=== PATIENT | male | born 1975 | race Caucasian/White ===

== ENCOUNTER 2018-03-02 19:51 | Emergency (ER) | payer OTHER, SELFPAY ==
[2018-03-02 19:53] VITALS: BP 126/97; PULSE 95; RESP 20; TEMP 36.8; O2SAT 99; BMI 39.9
--- NOTE | 2018-03-02 20:33 | ED.RN ---
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 Unable to reach anyone after hours for drug testing. Advised Radha contact his company in the morning for drug testing. 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 Radha expressed verbal understanding of this. Advised we are able to call in [facility] or [facility] if he needs testing done tonight. radha arita [phone]
--- NOTE | 2018-03-02 20:41 | ED.VISSUMM ---
- ER Visit Summary Date of Service: 03/02/18 Chief Complaint: Left upper extremity injury History of Present Illness: The patient is a 42 M presenting with left hand and wrist pain. Patient states he was at work earlier today. He slipped on the floor. He caught himself with his left upper extremity. He hit his hand against a piece of steel. He was able to brace himself and not fall. He is right-handed. He now complains of persistent pain in his left hand and wrist. He has not taken any medication prior to arrival. Physical Examination: Vitals are stable. Patient is afebrile. Alert no acute distress. HEENT exam is unremarkable. Lungs are clear and equal bilaterally. Heart is regular rate and rhythm. Extremities left hand dorsal diffuse tenderness, mild abrasion. Left wrist diffuse tenderness, painful range of motion. Skin is warm and dry. No focal neurologic deficit. Remainder of exam is unremarkable. Emergency Department Course and Treatment: Patient was given oxycodone. Ice pack was applied. X-ray left hand and wrist show no fracture. Patient is advised to ice and elevate. Advised to use NSAIDs for pain. Advised to follow-up with [employer] for workers comp. Advised to return to ED for worsening complaints. Disposition: Discharge home Impression: Left hand contusion This note was generated with [employer] dictation software. It may contain incorrect words, spelling, and punctuation that were not noted in review of the chart prior to signing ED Disposition - Plan for ED Patient: Chief Complaint: Upper Extremity Injury Instructions: ED Contusion Upper Ext Referrals: Marlon Esparza MD [Primary Care Provider] -
--- NOTE | 2018-03-02 20:44 | ED.DCSUM_ITS ---
- ER Visit Summary Date of Service: 03/02/18 Chief Complaint: Left upper extremity injury History of Present Illness: The patient is a 42 M presenting with left hand and wrist pain. Patient states he was at work earlier today. He slipped on the floor. He caught himself with his left upper extremity. He hit his hand against a piece of steel. He was able to brace himself and not fall. He is right-handed. He now complains of persistent pain in his left hand and wrist. He has not taken any medication prior to arrival. Physical Examination: Vitals are stable. Patient is afebrile. Alert no acute distress. HEENT exam is unremarkable. Lungs are clear and equal bilaterally. Heart is regular rate and rhythm. Extremities left hand dorsal diffuse tenderness, mild abrasion. Left wrist diffuse tenderness, painful range of motion. Skin is warm and dry. No focal neurologic deficit. Remainder of exam is unremarkable. Emergency Department Course and Treatment: Patient was given oxycodone. Ice pack was applied. X-ray left hand and wrist show no fracture. Patient is advised to ice and elevate. Advised to use NSAIDs for pain. Advised to follow- up with [employer] for workers comp. Advised to return to ED for worsening complaints. Disposition: Discharge home Impression: Left hand contusion This note was generated with [employer] dictation software. It may contain incorrect words, spelling, and punctuation that were not noted in review of the chart prior to signing ED Disposition - Plan for ED Patient: Chief Complaint: Upper Extremity Injury Instructions: ED Contusion Upper Ext Referrals: Marlon Esparza MD [Primary Care Provider] -
--- NOTE | 2018-03-02 20:45 | RAD_ITS ---
STUDY: X-RAY - LEFT WRIST REASON FOR EXAM: Male, 42 years old. Fall. Pain. TECHNIQUE: 3 view(s) of the wrist were obtained. COMPARISON: None. FINDINGS: There is no evidence of fracture or dislocation. There are no significant degenerative changes. There are no radiodense foreign bodies. RAD/Wrist min 3 Views IMPRESSION: No fracture or dislocation. Electronically Signed: Rui Lucas, at 21:12 EDT Tel , Service support ,
--- NOTE | 2018-03-02 20:45 | RAD_ITS ---
STUDY: X-RAY - LEFT HAND REASON FOR EXAM: Male, 42 years old. Fall TECHNIQUE: 3 view(s) of the hand. COMPARISON: None. FINDINGS: There is no evidence of fracture or dislocation. There are no significant degenerative changes. There are no radiodense foreign bodies. RAD/Hand Min 3 Views IMPRESSION: No fracture or dislocation. Electronically Signed: Rui Lucas, at 21:04 EDT Tel , Service support ,
--- NOTE | 2018-03-02 21:49 | ED.DEP ---
ED Disposition - Plan for ED Patient: Chief Complaint: Upper Extremity Injury Instructions: ED Contusion Upper Ext Referrals: Marlon Esparza MD [Primary Care Provider] -
[2018-03-02] MEDS: oxyCODONE 5 MG Tablet PO (22:05)
[2018-03-02 22:07] VITALS: RESP 16
--- NOTE | 2018-03-02 22:07 | ED.RN ---
REVIEWED D/C INSTRUCTIONS, FOLLOW UP CARE, AND S/S THAT WOULD WARRANT A RETURN TO THE ED WITH PT. PT VERBALIZED AN UNDERSTANDING AND DENIES FURTHER QUESTIONS FOR THIS RN. PT SKIN WARM AND DRY, RESP EVEN AND UNLABORED, PT A&O X 3, NO DISTRESS NOTED. PT AMBULATED OUT OF ED, GAIT STEADY.
== END 2018-03-02 22:09 | disposition home or self-care (01) ==
LOC: ED 21:04
PROVIDERS: Emergency Provider Emergency Medicine; Family Provider Family Medicine; PCP Family Medicine
DX: S60.222A Contusion of left hand, initial encounter (principal); W01.10XA Fall on same level from slipping, tripping and stumbling with subsequent striking against unspecified object, initial encounter; Y93.9 Activity, unspecified; Y92.89 Other specified places as the place of occurrence of the external cause; Y99.0 Civilian activity done for income or pay; Z79.899 Other long term (current) drug therapy
CPT/HCPCS: 73110; 73130; 99283

== ENCOUNTER 2018-10-07 21:48 | Emergency (ER) | payer SELFPAY ==
[2018-10-07 21:49] VITALS: BP 131/81; PULSE 67; RESP 18; TEMP 36.8; O2SAT 96; BMI 40.5
--- NOTE | 2018-10-07 23:06 | ED.DCSUM_ITS ---
History of Present Illness Chief Complaint: Weakness Informant: Patient - Abdominal Pain/Flank Pain Onset: Hours - 24 Context: Gradual Onset Timing: Continuous Quality: Cramping Location: Diffuse Current Severity: Moderate Maximum Severity: Moderate Worsened by: Nothing Relieved by: Nothing - hasn't tried any medications - Nausea/Vomiting/Emesis GI Symptom: Nausea. Negative for: Vomiting Onset: Today - Diarrhea/Melena/Hematochezia GI Symptom: Diarrhea - x 5 Onset: Today Stool Quality: Loose. Negative for: Black, Maroon, ARIANE per rectum Severity: Moderate Associated Symptoms: Negative for: Dysuria, Frequency, Hematuria, Urgency Narrative: Has a history of Crohn's. This does not necessarily feel like a flareup. He has had several bowel obstructions and bowel resections associated with his Crohn's but never an abscess or fistula. He is currently on prednisone for a knee problem, he is on day #4 of it. Has decreased appetite. Feels dehydrated although he has been trying to drink water all day. - Past Medical History (1) Crohn's disease Status: Chronic Past Medical History - Allergies and Home Meds Allergies/Adverse Reactions: Allergies No Known Allergies Allergy (Verified 10/07/18 21:50) Primary Care Physician: Marlon Esparza MD [Primary Care Provider] - Surgical History: - - Several bowel resections Lives: Spouse/ Significant Other Smoking Status: Current every day smoker Drugs: None Review of Systems General: Reports: Chills, Malaise. Denies: Fever, Sweats Eyes: Denies: Visual changes - bilaterally, Diplopia ENT: Denies: Rhinorrhea, Sore throat Cardiovascular: Denies: Chest pain, Palpitations Respiratory: Denies: Dyspnea, Cough, Dyspnea on exertion Gastrointestinal: Reports: Abdominal pain, Nausea, Diarrhea. Denies: Vomiting, Melena, Hematochezia Genitourinary: Denies: Dysuria, Hematuria, Frequency Musculoskeletal: Denies: Back pain, Swelling, Extremity Pain Skin: Denies: Rash, Wounds Neurological: Denies: Headache, Weakness, Numbness Physical Exam Vital Signs/Narrative: Vital Signs Temp Pulse Resp BP Pulse Ox 10/07/18 21:49 98.3 F 67 18 131/81 H 96 Inital Vital Signs reviewed: Yes General: Well nourished, Well developed, No Acute Distress Head: Normocephalic, Atraumatic Eyes: Perrl, EOMI ENT: Moist mucous membranes, No rhinorrhea Neck: Supple, Nontender Cardiovascular: Regular rate, Regular rhythm, No murmurs. Negative for: Tachycardia Respiratory: No distress, CTA bilaterally, Chest nontender Abdomen: Soft - And mildly distended, Nontender, Hyperactive bowel sounds Back: Nontender, Normal Inspection Extremities: Nontender, No edema Skin: Normal color, No rash Neurological: Alert, Oriented x3, Cranial nerves II-XII grossly intact, Normal Strength, Normal Sensation Psychological: Normal affect, Normal Mood Diagnostic/Tx/Re-eval Laboratory Tests 10/07/18 Range/Units 23:15 Sodium 139 (136-145) mmol/L Potassium 3.3 L (3.5-5.1) mmol/L Chloride 104 (98-107) mmol/L Carbon Dioxide 26.0 (21.0-32.0) mmol/L Anion Gap 9 (5-15) BUN 14 (7-18) mg/dL Creatinine 1.03 (0.70-1.30) mg/dL Estim Creat Clear Calc 95.48 ml/min Est GFR (MDRD) Af Amer 101 (>60) mL/min Est GFR (MDRD) Non-Af 84 (>60) mL/min BUN/Creatinine Ratio 13.6 (10-20) RATIO Glucose 104 (74-106) mg/dL Calcium 8.7 (8.5-10.1) mg/dL - Medical Decision Making Labs show mild hypokalemia, he was given some oral potassium after we treated hi s abdominal symptoms with IV fluids, Mylanta, simethicone, Zofran, and Bentyl. He is feeling improved. We both agree that it and imaging of the abdomen is not necessary at this time. I suspect he has a viral illness. Encouraged to return for worsening symptoms or if he develops severe and/or localized abdominal pain. He is amenable to this, as well as discharged home with prescriptions for Zo izzy, Bentyl, potassium. ED Disposition - Plan for ED Patient: Disposition: Home or Assisted Living Diagnosis: Acute diarrhea Instructions: ED Diarrhea Viral Prescriptions: Dicyclomine HCl [Bentyl] 20 mg PO Q4H PRN PRN #20 cap PRN Reason: abdominal cramping Ondansetron [Zofran] 8 mg PO Q8H PRN #12 tab PRN Reason: Nausea/Vomiting Potassium Chloride [K-Dur] 20 meq PO BID #8 tab Referrals: Marlon Esparza MD [Primary Care Provider] - 3-5 Days if not improving
[2018-10-07] MEDS: Dicyclomine 10 MG Capsule 20 MG PO (23:13)
[2018-10-07] MEDS: Mag Hydrox/Al Hydrox/Simeth 30 ML UDC PO (23:13)
[2018-10-07] MEDS: 0.9% Normal Saline 1,000 ML 999 ML IV (23:13)
[2018-10-07] MEDS: Ondansetron 4 MG/2 ML Vial IV (23:13)
[2018-10-07 23:43] LABS: Anion Gap 9 (5-15); BUN 14 mg/dL (7-18); BUN/Creat Ratio 13.6 RATIO (10-20); Calcium,Total 8.7 mg/dL (8.5-10.1); Chloride 104 mmol/L (98-107); Creatinine, Serum 1.03 mg/dL (0.70-1.30); EST Glomerular Filtration Rate 84 mL/min (>60); Est Glom Filt Rate - Afr Amer 101 mL/min (>60); Estimated Creatinine Clearance 95.48 ml/min; Glucose 104 mg/dL (74-106); Potassium 3.3 mmol/L (3.5-5.1); Sodium Level 139 mmol/L (136-145)
[2018-10-08 00:21] VITALS: BP 131/86; PULSE 69; RESP 20; O2SAT 94
== END 2018-10-08 00:27 | disposition home or self-care (01) ==
PROVIDERS: Emergency Provider Emergency Medicine; Family Provider Family Medicine; PCP Family Medicine
DX: R19.7 Diarrhea, unspecified (principal); E87.6 Hypokalemia; K50.90 Crohn's disease, unspecified, without complications; F17.200 Nicotine dependence, unspecified, uncomplicated; Z79.82 Long term (current) use of aspirin; Z79.899 Other long term (current) drug therapy
CPT/HCPCS: 80048; 96361; 96374; 99283; J7030; J2405

== ENCOUNTER 2018-10-08 13:03 | Inpatient (IN) | payer SELFPAY ==
[2018-10-07 21:49] VITALS: BMI 40.5
[2018-10-08 13:04] VITALS: BP 118/77; PULSE 94; RESP 17; TEMP 37.8; O2SAT 94; BMI 40.1
--- NOTE | 2018-10-08 13:34 | CT_ITS ---
STUDY: CT ABDOMEN AND PELVIS WITH CONTRAST REASON FOR EXAM: Male, 43 years old. Pain RADIATION DOSAGE (If Supplied By Facility): DLP = ( 1372.93 ) mGycm TECHNIQUE: Transaxial images were obtained from the dome of the diaphragm to the symphysis pubis without oral contrast. 100mL ml of Isovue 300 contrast was administered. Sagittal and coronal images were reconstructed. Individualized dose optimization techniques were used for this CT. COMPARISON: CT abdomen and pelvis January 18, 2015 FINDINGS: The visualized lung bases are clear. The visualized portions of the heart and pericardium are within normal limits. There are no calcified gallstones present. There is decreased hepatic attenuation. There are no suspicious hepatic lesions. The spleen is normal in size. The pancreas is within normal limits. The adrenal glands are within normal limits. There are no obstructing renal stones. There is no hydronephrosis. There are no focal renal lesions. Normal visualized stomach. There is no evidence of bowel obstruction. There is mild to moderate diffuse colonic wall thickening. There is mild adjacent increased fat attenuation. The aorta is normal in caliber. There is no abdominal or pelvic free air, free fluid, fluid collection or lymphadenopathy. There are no destructive osseous lesions. CT/Abdomen/Pelvis W IV Cont ONLY IMPRESSION: Mild to moderate diffuse colitis. Fatty liver. Electronically Signed: Erasto Short, at 15:05 EDT Tel , Service support ,
[2018-10-08] MEDS: 0.9% Normal Saline 1,000 ML 1000 ML IV (13:46)
[2018-10-08] MEDS: Ondansetron 4 MG/2 ML Vial IV (13:51)
[2018-10-08] MEDS: Morphine 4 MG/ML Syringe IV ×2 (13:51→16:12)
[2018-10-08 14:00] LABS: Absolute Lymphocyte Count 1.18 X10^3/ul (0.83-4.51); Absolute Neutrophil Count 11.2 X10^3/uL (2.0-7.7); Basophil# 0.02 X10^3/uL; Basophil% 0.1 % (0-1); Eosinophil# 0.01 X10^3/uL; Eosinophils% 0.1 % (0-5); Hematocrit 44.4 % (40-54); Hemoglobin 15.9 g/dl (13.0-16.5); Lymphocyte # 1.18 X10^3/ul (4.0); Lymphocyte % 8.8 % (19-41); Mean Corp Hgb Conc 35.8 g/gl (32-36); Mean Corpuscular Hgb 30.5 pg (27.0-32.0); Mean Corpuscular Volume 85.2 fL (80-94); Mean Platelet Vol. 9.8 fl (6.2-12.0); Monocyte# 1.04 X10^3/uL; Monocyte% 7.7 % (0-10); Neutrophil # 11.15 X10^3/uL (2.7-7.7); POSITIVE COUNT NO; POSITIVE DIFFERENTIAL NO; POSITIVE MORPHOLOGY NO; Platelet Count 183 K/mm3 (150-450); RBC Distribution Width CV 13.1 % (11.6-14.6); RBC Distribution Width SD 40.4 fl (35.1-43.9); Red Blood Count 5.21 M/mm3 (4.6-6.2); White Blood Count 13.4 K/mm3 (4.4-11.0)
[2018-10-08 14:10] LABS: ALB/GLOB Ratio 0.8 RATIO (0.9-2.4); AST(SGOT) 33 U/L (15-37); Alanine Aminotransfer ALT/SGPT 59 U/L (16-61); Albumin, Serum 3.4 g/dL (3.2-5.0); Alkaline Phosphatase 81 U/L (45-117); Anion Gap 7 (5-15); BUN 9 mg/dL (7-18); BUN/Creat Ratio 8.8 RATIO (10-20); Calcium,Total 8.5 mg/dL (8.5-10.1); Chloride 105 mmol/L (98-107); Creatinine, Serum 1.02 mg/dL (0.70-1.30); EST Glomerular Filtration Rate 85 mL/min (>60); Est Glom Filt Rate - Afr Amer 102 mL/min (>60); Estimated Creatinine Clearance 96.42 ml/min; Globulin 4.3 g/dL (2.2-4.2); Glucose 101 mg/dL (74-106); Lipase 103 U/L (73-393); Potassium 3.6 mmol/L (3.5-5.1); Protein, Total 7.7 g/dL (6.4-8.2); Sodium Level 135 mmol/L (136-145)
[2018-10-08 14:50] VITALS: BP 114/71; PULSE 71; RESP 16; TEMP 38; O2SAT 94
[2018-10-08 15:00] VITALS: BP 112/65; PULSE 70; RESP 12; TEMP 38; O2SAT 94; BMI 40.1; BMI 40.2
--- NOTE | 2018-10-08 15:34 | ED.DCSUM_ITS ---
- ER Visit Summary Date of Service: 10/08/18 Chief Complaint: Nausea, vomiting, diarrhea History of Present Illness: The patient is a 43 M with a history of Crohn's disease. He presents for nausea, vomiting, and diarrhea. Symptoms have been going on for 2 days. He was seen yesterday and had a pretty unremarkable work- up. He was sent home, but despite taking medications, he is worsening. Denies any bleeding. He is having some subjective fevers. No other new or different symptoms. He has a history of a remote obstruction and resection from his Crohn's disease. He is on prednisone. Physical Examination: Temperature 100.1. Heart rate 94. Otherwise vitals unremarkable. Patient appears uncomfortable. Heart regular. Lungs clear. Abdomen diffusely tender. No guarding or rebound. Skin appears normal. Test Results: White count 13.4 and sodium 135. Hepatic panel and lipase normal. Lactate and cultures pending. CT abdomen and pelvis showed mild to moderate diffuse colitis with a fatty liver. Emergency Department Course and Treatment: Patient treated with fluids, morphine, and Zofran while awaiting results. Results as above. He did have a leukocytosis and a heart rate of 94. Lactate and cultures pending. Given these findings and his failed outpatient care, he will need admission and was discussed with the hospitalist. I was initially going to treat with Solu-Medrol and Zosyn. I am not convinced this is a Crohn's flare. Will treat with Cipro, Flagyl and hold steroids for now. Treatment Plan: As above Disposition: Admission Impression: 1. Colitis This note was generated with [employer] dictation software. It may contain incorrect words, spelling, and punctuation that were not noted in review of the chart prior to signing ED Disposition - Plan for ED Patient: Referrals: Marlon Esparza MD [Primary Care Provider] -
--- NOTE | 2018-10-08 15:52 | PCM.HP.STD ---
Problem List (1) Sepsis Status: Acute (2) Acute colitis Status: Acute (3) Crohn's disease Status: Chronic History of Present Illness Date of Admission: 10/08/18 Chief Complaint: Nausea, vomiting and diarrhea. The patient is a 43 year old M with past medical history as mentioned above presented to the emergency room because of nausea, vomiting and diarrhea. His symptoms started 2 days ago first with not feeling well and, weak and having some malaise. Next day, patient started having diarrhea with watery stool, 6-8 times daily since yesterday, started having associated nausea and vomiting since last night which was persistent, could not keep down any liquids or food and associated with fever of up to 101 Fahrenheit. Since today morning, he started complaining of vague abdominal discomfort, not real pain, associated with abdominal distention and he continued to throw up and having diarrhea as well as fever. Patient came to the emergency department 2 days ago for weakness and diarrhea and he was given symptomatic treatment and was discharged home. Today in the emergency room, patient had low-grade fever, heart rate was up to 94 bpm, other vital signs were stable. Routine blood work was remarkable for leukocytosis, otherwise normal. LFT and lipase were unremarkable. CT scan abdomen and pelvis with IV contrast revealed mild to moderate diffuse colonic wall thickening consistent with acute colitis. Patient is being admitted for acute diffuse colitis with sepsis for evaluation and treatment. Past Medical History Past Medical History (Chronic Problems): Chronic Problems Crohn's disease (Chronic) Allergies No Known Allergies Allergy (Verified 10/08/18 13:04) Home Medications: Ambulatory Orders Medication Instructions Recorded Aspirin [Aspirin, Baby] 81 mg PO DAILY@0800 10/07/18 Prednisone 10 mg PO UD 10/07/18 Dicyclomine HCl [Bentyl] 20 mg PO Q4H PRN PRN #20 cap 10/08/18 Ondansetron [Zofran] 8 mg PO Q8H PRN #12 tab 10/08/18 Potassium Chloride [K-Dur] 20 meq PO BID #8 tab 10/08/18 Surgical History: appendectomy, - - Several bowel resections Psychiatric History: No pertinent psych hx Lives: Spouse/ Significant Other Smoking Status: Current every day smoker Tobacco Use: Cigarettes Alcohol: None Drugs: None - *Family History Maternal History Items: No pertinent history Paternal History Items: No pertinent history Review of Systems Constitutional: Reports: Anorexia, Chills, Fever, Weakness, Fatigue Eyes: Denies: Blurred vision, Double vision, Drainage, Redness HEENT: Denies: Difficulty Hearing, Ear Pain, Eye Pain, Nasal Congestion, Sore Throat Cardiovascular: Denies: Chest Pain, Chest Pressure, Heaviness, Light Headedness, Palpitations, Syncope Respiratory: Reports: Cough. Denies: Pleuritic Pain, Shortness of Breath, Sputum production, Wheezing Gastrointestinal: Reports: Diarrhea, Nausea, Vomiting. Denies: Constipation, Hematochezia, Melena Genitourinary: Denies: Dysuria, Frequency, Hematuria Skin: Denies: Dryness, Rash Neurological: Denies: Balance problems, Double vision, Change in Speech, Slurred speech, Confusion, Headaches, Incoordination, Numbness Psychiatric: Denies: Anxiety, Depression Endocrine: Denies: Change in Body Habitus, Polydipsia VTE Information - Inpt Only VTE Present on Admission: No VTE Mechan Device Prophylaxis: None VTE Pharm Prophylaxis ordered?: No - Physical Exam General: Alert, Oriented x3, Cooperative, No apparent distress HEENT: Atraumatic, PERRLA, EOMI, Normocephalic Oral: Moist Mucosa, No Gingival or Mucosal Lesions/ Ulcerations Neck: Supple, No JVD, Negative Carotid Bruits, Trachea Midline, Thyroid Normal Size and Texture Lungs: Clear to auscultation, Normal air movement, No rhonchi, No wheeze, No rales, Diminished Cardiovascular: Regular rate, Regular Rhythm, Normal S1, Normal S2, No murmurs, PMI Normal Abdomen: Bowel Sounds Present, Soft, No Hepato-splenomegaly, Distended, Tender - No guarding or rigidity. Extremities: No clubbing, No cyanosis, No edema Skin: No rashes, No breakdown Lymphatic: No Cervical, Supraclavicular, or Inguinal Adenopathy Neurological: Cranial nerves II-XII grossly intact, Motor Exam 5/5 strength throughout Psych/Mental Status: Normal Affect, Appropriate, Alert and oriented to time, place, person, mood and affect Vital Signs Temp Pulse Resp BP Pulse Ox 100.4 F H 71 16 114/71 94 10/08/18 14:50 10/08/18 14:50 10/08/18 14:50 10/08/18 14:50 10/08/18 14:50 Oxygen Delivery Method Room Air Weight: 280 lb Body Mass Index (BMI) 40.1 Laboratory Tests Past 24 Hrs 10/08/18 10/08/18 13:45 13:45 WBC 13.4 H RBC 5.21 Hgb 15.9 Hct 44.4 MCV 85.2 MCH 30.5 MCHC 35.8 RDW 13.1 RDW Differential 40.4 Plt Count 183 MPV 9.8 Immature Gran % (Auto) 0.300 Neut % (Auto) 83.0 H Lymph % (Auto) 8.8 L [place] % (Auto) 7.7 Eos % (Auto) 0.1 Baso % (Auto) 0.1 Absolute Neuts (auto) 11.2 H Absolute Lymphs (auto) 1.18 Total Counted Not Reportable Sodium 135 L Potassium 3.6 Chloride 105 Carbon Dioxide 23.0 Anion Gap 7 BUN 9 Creatinine 1.02 Estim Creat Clear Calc 96.42 Est GFR (MDRD) Af Amer 102 Est GFR (MDRD) Non-Af 85 BUN/Creatinine Ratio 8.8 L Glucose 101 Calcium 8.5 Total Bilirubin 0.80 AST 33 ALT 59 Alkaline Phosphatase 81 Total Protein 7.7 Albumin 3.4 Globulin 4.3 H Albumin/Globulin Ratio 0.8 L Lipase 103 Clinical Impression(s) from Imaging Studies Abdomen/Pelvis CT 10/08/18 13:34 IMPRESSION: Mild to moderate diffuse colitis. Fatty liver. Electronically Signed: Erasto Short, at 15:05 EDT Tel , Service support , Assessment/Plan All Active Problems Sepsis (Acute) Acute colitis (Acute) This is a 43 years old male patient presented to the emergency room because of nausea, vomiting, diarrhea, fever, weakness and abdominal distention, found to have mild to moderate diffuse colonic thickening on CT scan abdomen and pelvis consistent with acute diffuse colitis with sepsis. #1 acute diffuse colitis/sepsis: Patient is septic based on low-grade fever, heart rate more than 90 and leukocytosis. Lactic acid was just ordered in the ED. His blood pressure has been stable, the spikes of low-grade fever in the ED. CT scan abdomen and pelvis reviewed as above. I doubt that this acute diffuse colitis due to acute exacerbation of Crohn's disease as it is diffuse inflammation and it involves only the colon. This is probably infectious in etiology. Plan: Admit to MedSurg floor, keep on clear liquids, IV fluids, IV morphine PRN, IV Zofran and Phenergan as needed, IV Protonix twice daily, chest x-ray, urinalysis, urine culture, blood culture, stool for C. difficile, stool for enteric pathogens, stool for parasites, start IV Flagyl and ciprofloxacin, repeat CBC and CMP tomorrow morning, awaiting lactic acid. #2 Crohn's disease: At this time, I doubt that his symptoms due to acute flareup of Crohn's disease. Patient denies any bloody diarrhea. He denied any significant abdominal pain. Plan as above. #3 DVT prophylaxis: Low risk patient, no prophylaxis indicated. This note was generated with [email or web address] dictation software. It may contain incorrect words, spelling, and punctuation that were not noted in checking the note before signing. Code Visit Inpatient E&M: 99120 Init Hosp L3
--- NOTE | 2018-10-08 17:00 | RAD_ITS ---
STUDY: X-RAY CHEST REASON FOR EXAM: Male, 43 years old. Fever TECHNIQUE: Frontal view of the chest COMPARISON: None. FINDINGS: The lungs are clear. There are no pleural effusions. There is no pneumothorax. The heart is normal in size. The visualized osseous structures are within normal limits. RAD/Chest 1 View (Portable) IMPRESSION: No acute thoracic pathology. Electronically Signed: Erasto Short, at 17:13 EDT Tel , Service support ,
[2018-10-08 17:10] LABS: Lactic Acid 0.7 mmol/L (0.4-2.0)
[2018-10-08 17:59] VITALS: PULSE 68
[2018-10-08] MEDS: Ciprofloxacin 400 MG/200 ML BAG 200 MG IV (18:33)
[2018-10-08 19:59] VITALS: PULSE 85
[2018-10-08 21:37] LABS: Bacteria 0 SEEN /hpf (None Seen); Mucous, Urine 0 SEEN /hpf (<or=2+); Red Blood Cells-Urine 0 SEEN /hpf (0-5); Squamous Epithelial Cells - UA 0 SEEN /hpf (0-5); White Blood Cells 0 SEEN /hpf (0-5)
[2018-10-08 21:39] VITALS: BP 117/69; PULSE 68; RESP 18; TEMP 37.2; O2SAT 98
[2018-10-08 21:40] LABS: Color, Urine Yellow (Yellow); Glucose, Dipstick Normal (Normal); Ketone-Dipstick 15 mg/dl (Negative); Leukocyte Esterase-Dipstick Negative /ul (Negative); Nitrite-Dipstick Negative (Negative); Occult Blood-Urine 10 /ul (Negative); Protein-Dipstick Negative (Negative); Specific Gravity, Urine 1.015 (1.002-1.030); Urine Bilirubin Dipstick Negative (Negative); Urine Clarity Clear (Clear); Urine Urobilinogen Normal (Normal)
[2018-10-08] MEDS: Acetaminophen 325 MG Tablet 650 MG PO (21:56)
[2018-10-09] VITALS (11 sets, daily range): BP systolic 106–113; BP diastolic 60–69; PULSE 53–75; RESP 16–18; TEMP 36.7–37.1; O2SAT 96–98
[2018-10-09] MEDS: Ondansetron 4 MG/2 ML Vial IV (03:42)
[2018-10-09] MEDS: Morphine 2 MG/ML Syringe IV (03:42)
[2018-10-09] MEDS: Acetaminophen 325 MG Tablet 650 MG PO ×2 (05:17→16:29)
[2018-10-09 06:06] LABS: Absolute Lymphocyte Count 0.91 X10^3/ul (0.83-4.51); Absolute Neutrophil Count 5.6 X10^3/uL (2.0-7.7); Basophil# 0.02 X10^3/uL; Basophil% 0.3 % (0-1); Eosinophil# 0.11 X10^3/uL; Eosinophils% 1.5 % (0-5); Hematocrit 41.7 % (40-54); Hemoglobin 14.2 g/dl (13.0-16.5); Lymphocyte # 0.91 X10^3/ul (4.0); Lymphocyte % 12.1 % (19-41); Mean Corp Hgb Conc 34.1 g/gl (32-36); Mean Corpuscular Hgb 29.8 pg (27.0-32.0); Mean Corpuscular Volume 87.4 fL (80-94); Mean Platelet Vol. 9.9 fl (6.2-12.0); Monocyte# 0.88 X10^3/uL; Monocyte% 11.7 % (0-10); Neutrophil % 74.3 % (47-70); Platelet Count 145 K/mm3 (150-450); RBC Distribution Width CV 13.5 % (11.6-14.6); RBC Distribution Width SD 42.3 fl (35.1-43.9); Red Blood Count 4.77 M/mm3 (4.6-6.2); White Blood Count 7.5 K/mm3 (4.4-11.0)
[2018-10-09 06:16] LABS: POSITIVE COUNT NO; POSITIVE DIFFERENTIAL NO; POSITIVE MORPHOLOGY NO
[2018-10-09 06:28] LABS: ALB/GLOB Ratio 0.8 RATIO (0.9-2.4); AST(SGOT) 29 U/L (15-37); Alanine Aminotransfer ALT/SGPT 50 U/L (16-61); Albumin, Serum 2.8 g/dL (3.2-5.0); Alkaline Phosphatase 68 U/L (45-117); Anion Gap 4 (5-15); BUN 8 mg/dL (7-18); BUN/Creat Ratio 8.4 RATIO (10-20); Chloride 109 mmol/L (98-107); Creatinine, Serum 0.95 mg/dL (0.70-1.30); EST Glomerular Filtration Rate 92 mL/min (>60); Est Glom Filt Rate - Afr Amer 111 mL/min (>60); Estimated Creatinine Clearance 103.52 ml/min; Globulin 3.7 g/dL (2.2-4.2); Glucose 91 mg/dL (74-106); Potassium 4.2 mmol/L (3.5-5.1); Protein, Total 6.5 g/dL (6.4-8.2); Sodium Level 139 mmol/L (136-145)
--- NOTE | 2018-10-09 08:47 | PCM.PROGNOTE ---
Subjective: Chief complaint: Follow-up after admission for acute diffuse colitis and sepsis. Patient seen and examined. No acute events overnight. Abdominal pain improved but still complaining of mild abdominal discomfort. He has no more nausea or vomiting. He has been afebrile overnight. Still complaining of diarrhea, he had 4 times of watery stool overnight, no blood. His vital signs are stable. - Physical Exam General: Alert, Oriented x3, Cooperative, No apparent distress HEENT: Atraumatic, PERRLA, EOMI, Normocephalic Oral: Moist Mucosa, No Gingival or Mucosal Lesions/ Ulcerations Neck: Supple, No JVD, Negative Carotid Bruits, Trachea Midline, Thyroid Normal Size and Texture Lungs: Clear to auscultation, Normal air movement, No rhonchi, No wheeze, No rales Cardiovascular: Regular rate, Regular Rhythm, Normal S1, Normal S2, PMI Normal Abdomen: Bowel Sounds Present, Soft, Non-Distended, No Hepato-splenomegaly, Tender - Minimal tenderness. Extremities: No clubbing, No cyanosis, No edema Skin: No rashes, No breakdown Lymphatic: No Cervical, Supraclavicular, or Inguinal Adenopathy Neurological: Cranial nerves II-XII grossly intact, Neuro grossly intact Psych/Mental Status: Normal Affect, Appropriate, Alert and oriented to time, place, person, mood and affect Vital Signs Temp Pulse Resp BP Pulse Ox 98.5 F 53 L 16 113/66 97 10/09/18 02:21 10/09/18 04:34 10/09/18 02:21 10/09/18 02:21 10/09/18 07:16 Oxygen Delivery Method Room Air Weight: 280 lb Body Mass Index (BMI) 40.1 Intake and Output for Last 24 Hours 10/07/18 10/08/18 10/09/18 23:59 23:59 23:59 Intake Total 2273 / 2273 Output Total 550 / 550 Balance 1723 / 1723 Microbiology Past 72 Hours 10/08/18 22:20 C. difficile DNA Amplification - Final Stool Laboratory Tests Past 24 Hrs 10/08/18 10/08/18 10/08/18 13:45 13:45 16:24 WBC 13.4 H RBC 5.21 Hgb 15.9 Hct 44.4 MCV 85.2 MCH 30.5 MCHC 35.8 RDW 13.1 RDW Differential 40.4 Plt Count 183 MPV 9.8 Immature Gran % (Auto) 0.300 Neut % (Auto) 83.0 H Lymph % (Auto) 8.8 L [place] % (Auto) 7.7 Eos % (Auto) 0.1 Baso % (Auto) 0.1 Absolute Neuts (auto) 11.2 H Absolute Lymphs (auto) 1.18 Total Counted Not Reportable Sodium 135 L Potassium 3.6 Chloride 105 Carbon Dioxide 23.0 Anion Gap 7 BUN 9 Creatinine 1.02 Estim Creat Clear Calc 96.42 Est GFR (MDRD) Af Amer 102 Est GFR (MDRD) Non-Af 85 BUN/Creatinine Ratio 8.8 L Glucose 101 Lactic Acid 0.7 Calcium 8.5 Total Bilirubin 0.80 AST 33 ALT 59 Alkaline Phosphatase 81 Total Protein 7.7 Albumin 3.4 Globulin 4.3 H Albumin/Globulin Ratio 0.8 L Lipase 103 Urine Color Urine Clarity Urine pH Ur Specific [place] Urine Protein Urine Glucose (UA) Urine Ketones Urine Occult Blood Urine Nitrite Urine Bilirubin Urine Urobilinogen Ur Leukocyte Esterase Urine RBC Urine WBC Ur Squamous Epith Cells Urine Bacteria Urine Mucus 10/08/18 10/09/18 10/09/18 20:30 05:10 05:10 WBC 7.5 RBC 4.77 Hgb 14.2 Hct 41.7 MCV 87.4 MCH 29.8 MCHC 34.1 RDW 13.5 RDW Differential 42.3 Plt Count 145 L MPV 9.9 Immature Gran % (Auto) 0.100 Neut % (Auto) 74.3 H Lymph % (Auto) 12.1 L [place] % (Auto) 11.7 H Eos % (Auto) 1.5 Baso % (Auto) 0.3 Absolute Neuts (auto) 5.6 Absolute Lymphs (auto) 0.91 Total Counted Not Reportable Sodium 139 Potassium 4.2 Chloride 109 H Carbon Dioxide 26.0 Anion Gap 4 L BUN 8 Creatinine 0.95 Estim Creat Clear Calc 103.52 Est GFR (MDRD) Af Amer 111 Est GFR (MDRD) Non-Af 92 BUN/Creatinine Ratio 8.4 L Glucose 91 Lactic Acid Calcium 8.0 L Total Bilirubin 0.50 AST 29 ALT 50 Alkaline Phosphatase 68 Total Protein 6.5 Albumin 2.8 L Globulin 3.7 Albumin/Globulin Ratio 0.8 L Lipase Urine Color Yellow Urine Clarity Clear Urine pH 6.0 Ur Specific [place] 1.015 Urine Protein Negative Urine Glucose (UA) Normal Urine Ketones 15 H Urine Occult Blood 10 H Urine Nitrite Negative Urine Bilirubin Negative Urine Urobilinogen Normal Ur Leukocyte Esterase Negative Urine RBC 0 SEEN Urine WBC 0 SEEN Ur Squamous Epith Cells 0 SEEN Urine Bacteria 0 SEEN Urine Mucus 0 SEEN Microbiology 10/08/18 22:20 Stool C. difficile DNA Amplification - Final Medical Necessity - Tobacco Use Smoking Status: Current every day smoker Tobacco Use: Cigarettes Assessment/Plan All Active Problems Sepsis (Acute) Acute colitis (Acute) This is a 43 years old male patient presented to the emergency room because of nausea, vomiting, diarrhea, fever, weakness and abdominal distention, found to have mild to moderate diffuse colonic thickening on CT scan abdomen and pelvis consistent with acute diffuse colitis with sepsis. #1 acute diffuse colitis/sepsis: Probably viral in etiology. Patient is on IV Flagyl and ciprofloxacin. He has been afebrile, white blood cell count is back to normal. Stool for C. difficile was negative. Other stool studies, urine and blood cultures are pending. Again, I doubt this is acute flareup of Crohn's disease as the acute inflammation is involving the colon and it is diffuse. Plan: Continue same treatment, advance diet to full liquid diet, anticipate discharge home tomorrow. #2 Crohn's disease: At this time, I doubt that his symptoms due to acute flareup of Crohn's disease. Patient denies any bloody diarrhea. He denied any significant abdominal pain. Plan as above. #3 DVT prophylaxis: Low risk patient, no prophylaxis indicated. This note was generated with [employer] dictation software. It may contain incorrect words, spelling, and punctuation that were not noted in checking the note before signing. Code Visit Inpatient E&M: 67602 Subs Hosp L2
[2018-10-09] MEDS: Ciprofloxacin 400 MG/200 ML BAG 200 MG IV ×2 (09:14→21:24)
[2018-10-09] MEDS: Dicyclomine 10 MG Capsule PO ×2 (16:29→21:29)
[2018-10-09] MEDS: Ibuprofen 600 MG Tablet PO (21:23)
[2018-10-10 02:00] VITALS: PULSE 54
[2018-10-10 02:23] VITALS: BP 100/63; PULSE 48; RESP 16; TEMP 36.4; O2SAT 97
[2018-10-10 08:00] VITALS: PULSE 80
[2018-10-10] MEDS: Dicyclomine 10 MG Capsule PO (08:23)
[2018-10-10 08:30] VITALS: BP 138/77; PULSE 54; RESP 16; TEMP 36.4; O2SAT 100
--- NOTE | 2018-10-10 10:01 | PCM.DC ---
You will use the following diet at home:: No restrictions Your food should be the consistency of: Regular Discharge Activity: Return to Normal Activity Call your doctor if you observe: Fever of 101 or Higher, - - worsening abdominal pain. intractable nasuea, vomiting, diarrhea Allergies/Adverse Reactions: Allergies No Known Allergies Allergy (Verified 10/08/18 13:04) Medications to take at Discharge Aspirin [Aspirin, Baby] 81 mg PO DAILY@0800 10/07/18 Dicyclomine HCl [Bentyl] 20 mg PO Q4H PRN PRN #20 cap 10/08/18 Ondansetron [Zofran] 8 mg PO Q8H PRN #12 tab 10/08/18 Potassium Chloride [K-Dur] 20 meq PO BID #8 tab 10/08/18 Acetaminophen [Tylenol Tablet] 1,000 mg PO Q6H PRN PRN tablet 10/10/18 Ciprofloxacin [Cipro] 500 mg PO BID #17 tab 10/10/18 Metronidazole 500 mg PO TID #25 tab 10/10/18 The following prescriptions were given: Ciprofloxacin [Cipro] 500 mg PO BID #17 tab Metronidazole 500 mg PO TID #25 tab Primary Care Physician: Marlon Esparza MD [Primary Care Provider] - Within 2 Weeks Test Results: Test results from this visit will be discussed in further detail at your follow-up appointment, if applicable. Please Follow Up With: Julio Wills MD When: 4-6 weeks (or another turn laster) Proposed Discharge Date: 10/10/18
--- NOTE | 2018-10-10 10:05 | DCINST_ITS ---
You will use the following diet at home:: No restrictions Your food should be the consistency of: Regular Discharge Activity: Return to Normal Activity Call your doctor if you observe: Fever of 101 or Higher, - - worsening abdominal pain. intractable nasuea, vomiting, diarrhea Allergies/Adverse Reactions: Allergies No Known Allergies Allergy (Verified 10/08/18 13:04) Medications to take at Discharge Aspirin [Aspirin, Baby] 81 mg PO DAILY@0800 10/07/18 Dicyclomine HCl [Bentyl] 20 mg PO Q4H PRN PRN #20 cap 10/08/18 Ondansetron [Zofran] 8 mg PO Q8H PRN #12 tab 10/08/18 Potassium Chloride [K-Dur] 20 meq PO BID #8 tab 10/08/18 Acetaminophen [Tylenol Tablet] 1,000 mg PO Q6H PRN PRN tablet 10/10/18 Ciprofloxacin [Cipro] 500 mg PO BID #17 tab 10/10/18 Metronidazole 500 mg PO TID #25 tab 10/10/18 The following prescriptions were given: Ciprofloxacin [Cipro] 500 mg PO BID #17 tab Metronidazole 500 mg PO TID #25 tab Primary Care Physician: Marlon Esparza MD [Primary Care Provider] - Within 2 Weeks Test Results: Test results from this visit will be discussed in further detail at your follow- up appointment, if applicable. Please Follow Up With: Julio Wills MD When: 4-6 weeks (or another census taker) Proposed Discharge Date: 10/10/18
--- NOTE | 2018-10-10 10:05 | PCM.DC.SUM ---
Discharge Date and Diagnosis - Problem List Patient Problems: Active and Suspected Problems Sepsis (Acute) Acute colitis (Acute) Date of Admission: 10/08/18 Date of Discharge: 10/10/18 - Secondary Discharge Diagnosis Chronic Problems Crohn's disease (Chronic) Hospital Course and Treatment Imaging Results: Clinical Impression(s) from Imaging Studies Abdomen/Pelvis CT 10/08/18 13:34 IMPRESSION: Mild to moderate diffuse colitis. Fatty liver. Electronically Signed: Erasto Mendosai, at 15:05 EDT Tel , Service support , Chest X-Ray 10/08/18 17:00 IMPRESSION: No acute thoracic pathology. Electronically Signed: Erasto Mendosai, at 17:13 EDT Tel , Service support , Operations: None Procedures: None Summary of Care Provided: The patient is a 43 year old M presents with 2-day history of nausea, vomiting and diarrhea. Patient had a CAT scan that showed mild to moderate diffuse colitis. Patient was clinically septic on arrival and was started on IV antibiotics with ciprofloxacin and metronidazole. Is felt that that this may be infectious as it was diffuse and not inflammatory flareup. Patient was diagnosed with Crohn's disease in 1991 when he had a small bowel obstruction and had a biopsy at that time that confirmed the diagnosis of Crohn's disease. Patient has some mild intermittent flareups periodically but resolved spontaneously. He feels that those are more associated with when he takes an dietary indiscretions, such as taking too much caffeine. This is different as it was much more severe. Today, patient is feeling much better. Patient's diet will be advanced to a low residue if patient tolerates that then he can be discharged. Patient is not on any medication for his Crohn's disease. Was following with a doctor Elma, but has not followed up with any manager agricultural in the past couple years. Advised patient follow-up with gastroenterology in the next 1 to 2 months and see about getting repeat endoscopy at that time. It is possible this could be a flare but patient is having improvements though this would be an atypical presentation or if any acute Crohn's exacerbation and atypical from what he has presented with as well. Unlikely the patient has ulcerative colitis on top of Crohn's disease. Patient is having benefits with antibiotics and will continue with such. [] Patient Problems: Active and Suspected Problems Sepsis (Acute) Acute colitis (Acute) - Physical Exam General: Alert, No apparent distress HEENT: Atraumatic, Normocephalic Oral: Moist Mucosa, No Gingival or Mucosal Lesions/ Ulcerations Neck: No Nodes, Thyroid Normal Size and Texture Lungs: Clear to auscultation, Normal air movement, No rhonchi, No wheeze Cardiovascular: Regular rate, Regular Rhythm, Normal S1, Normal S2, No murmurs Abdomen: Bowel Sounds Present, Soft, Non-Distended, No Hepato-splenomegaly, Tender Extremities: No edema, No Calf Tenderness Skin: No rashes, No breakdown Psych/Mental Status: Normal Affect, Appropriate Vital Signs Temp Pulse Resp BP Pulse Ox 36.4 C L 54 L 16 138/77 H 100 10/10/18 08:30 10/10/18 08:30 10/10/18 08:30 10/10/18 08:30 10/10/18 08:30 Oxygen Delivery Method Room Air Weight: 127 kg Body Mass Index (BMI) 40.1 Intake and Output for Last 24 Hours 10/08/18 10/09/18 10/10/18 23:59 23:59 23:59 Intake Total 4773 / 4773 3684 / 3684 Output Total 550 / 550 Balance 4223 / 4223 3684 / 3684 Microbiology Past 72 Hours 10/08/18 22:20 Enteric Bacteriology - Final Stool 10/08/18 22:20 C. difficile DNA Amplification - Final Stool Discharge Diet: No Restrictions Discharge Activity: Return to Normal Activity Call your doctor if you observe: Fever of 101 or Higher, - - worsening abdominal pain. intractable nasuea, vomiting, diarrhea Home Medications: Medications to take at Discharge Aspirin [Aspirin, Baby] 81 mg PO DAILY@0800 10/07/18 Dicyclomine HCl [Bentyl] 20 mg PO Q4H PRN PRN #20 cap 10/08/18 Ondansetron [Zofran] 8 mg PO Q8H PRN #12 tab 10/08/18 Potassium Chloride [K-Dur] 20 meq PO BID #8 tab 10/08/18 Acetaminophen [Tylenol Tablet] 1,000 mg PO Q6H PRN PRN tablet 10/10/18 Ciprofloxacin [Cipro] 500 mg PO BID #17 tab 10/10/18 Metronidazole 500 mg PO TID #25 tab 10/10/18 Following Prescrptions Were Given to Patient: Ciprofloxacin [Cipro] 500 mg PO BID #17 tab Metronidazole 500 mg PO TID #25 tab Primary Care Physician: Marlon Esparza MD [Primary Care Provider] - Within 2 Weeks Please Follow Up With: Julio Wills MD When: 4-6 weeks (or another manager agricultural) Minutes spent on discharge:: 32 Patient Condition:: Good Medical Necessity - Tobacco Use Smoking Status: Current every day smoker Tobacco Use: Cigarettes Meaningful Use Info Meaningful Use Diagnoses (Choose all that apply): None applicable Code Visit Inpatient E&M: 13546 [facility] Hosp
--- NOTE | 2018-10-10 10:09 | DS.PCM_ITS ---
Discharge Date and Diagnosis - Problem List Patient Problems: Active and Suspected Problems Sepsis (Acute) Acute colitis (Acute) Date of Admission: 10/08/18 Date of Discharge: 10/10/18 - Secondary Discharge Diagnosis Chronic Problems Crohn's disease (Chronic) Hospital Course and Treatment Imaging Results: Clinical Impression(s) from Imaging Studies Abdomen/Pelvis CT 10/08/18 13:34 IMPRESSION: Mild to moderate diffuse colitis. Fatty liver. Electronically Signed: Erasto Mendosai, at 15:05 EDT Tel , Service support , Chest X-Ray 10/08/18 17:00 IMPRESSION: No acute thoracic pathology. Electronically Signed: Erasto Mendosai, at 17:13 EDT Tel , Service support , Operations: None Procedures: None Summary of Care Provided: The patient is a 43 year old M presents with 2-day history of nausea, vomiting and diarrhea. Patient had a CAT scan that showed mild to moderate diffuse colitis. Patient was clinically septic on arrival and was started on IV antibiotics with ciprofloxacin and metronidazole. Is felt that that this may be infectious as it was diffuse and not inflammatory flareup. Patient was diagnosed with Crohn's disease in 1991 when he had a small bowel obstruction and had a biopsy at that time that confirmed the diagnosis of Crohn's disease. Patient has some mild intermittent flareups periodically but resolved spontaneously. He feels that those are more associated with when he takes an dietary indiscretions, such as taking too much caffeine. This is different as it was much more severe. Today, patient is feeling much better. Patient's diet will be advanced to a low residue if patient tolerates that then he can be discharged. Patient is not on any medication for his Crohn's disease. Was following with a doctor Elma, but has not followed up with any centrifugal machine tender in the past couple years. Advised patient follow-up with gastroenterology in the next 1 to 2 months and see about getting repeat endoscopy at that time. It is possible this could be a flare but patient is having improvements though this would be an atypical presentation or if any acute Crohn's exacerbation and atypical from what he has presented with as well. Unlikely the patient has ulcerative colitis on top of Crohn's disease. Patient is having benefits with antibiotics and will continue with such. [] Patient Problems: Active and Suspected Problems Sepsis (Acute) Acute colitis (Acute) - Physical Exam General: Alert, No apparent distress HEENT: Atraumatic, Normocephalic Oral: Moist Mucosa, No Gingival or Mucosal Lesions/ Ulcerations Neck: No Nodes, Thyroid Normal Size and Texture Lungs: Clear to auscultation, Normal air movement, No rhonchi, No wheeze Cardiovascular: Regular rate, Regular Rhythm, Normal S1, Normal S2, No murmurs Abdomen: Bowel Sounds Present, Soft, Non-Distended, No Hepato-splenomegaly, Tender Extremities: No edema, No Calf Tenderness Skin: No rashes, No breakdown Psych/Mental Status: Normal Affect, Appropriate Vital Signs Temp Pulse Resp BP Pulse Ox 36.4 C L 54 L 16 138/77 H 100 10/10/18 08:30 10/10/18 08:30 10/10/18 08:30 10/10/18 08:30 10/10/18 08:30 Oxygen Delivery Method Room Air Weight: 127 kg Body Mass Index (BMI) 40.1 Intake and Output for Last 24 Hours 10/08/18 10/09/18 10/10/18 23:59 23:59 23:59 Intake Total 4773 / 4773 3684 / 3684 Output Total 550 / 550 Balance 4223 / 4223 3684 / 3684 Microbiology Past 72 Hours 10/08/18 22:20 Enteric Bacteriology - Final Stool 10/08/18 22:20 C. difficile DNA Amplification - Final Stool Discharge Diet: No Restrictions Discharge Activity: Return to Normal Activity Call your doctor if you observe: Fever of 101 or Higher, - - worsening abdominal pain. intractable nasuea, vomiting, diarrhea Home Medications: Medications to take at Discharge Aspirin [Aspirin, Baby] 81 mg PO DAILY@0800 10/07/18 Dicyclomine HCl [Bentyl] 20 mg PO Q4H PRN PRN #20 cap 10/08/18 Ondansetron [Zofran] 8 mg PO Q8H PRN #12 tab 10/08/18 Potassium Chloride [K-Dur] 20 meq PO BID #8 tab 10/08/18 Acetaminophen [Tylenol Tablet] 1,000 mg PO Q6H PRN PRN tablet 10/10/18 Ciprofloxacin [Cipro] 500 mg PO BID #17 tab 10/10/18 Metronidazole 500 mg PO TID #25 tab 10/10/18 Following Prescrptions Were Given to Patient: Ciprofloxacin [Cipro] 500 mg PO BID #17 tab Metronidazole 500 mg PO TID #25 tab Primary Care Physician: Marlon Esparza MD [Primary Care Provider] - Within 2 Weeks Please Follow Up With: Julio Wills MD When: 4-6 weeks (or another centrifugal machine tender) Minutes spent on discharge:: 32 Patient Condition:: Good Medical Necessity - Tobacco Use Smoking Status: Current every day smoker Tobacco Use: Cigarettes Meaningful Use Info Meaningful Use Diagnoses (Choose all that apply): None applicable Code Visit Inpatient E&M: 45852 [facility] Hosp
[2018-10-10] MEDS: Ciprofloxacin 400 MG/200 ML BAG 200 MG IV (10:25)
[2018-10-10 11:59] VITALS: PULSE 54
[2018-10-10 13:00] VITALS: BP 131/82; PULSE 68; RESP 14; TEMP 36.6; O2SAT 96
== END 2018-10-10 13:09 | disposition home or self-care (01) | DRG 872 ==
LOC: ED 13:50 → MS3 16:00
PROVIDERS: Admitting Provider Hospitalist; Emergency Provider Emergency Medicine; Family Provider Family Medicine; PCP Family Medicine
DX: A41.9 Sepsis, unspecified organism (principal); A09 Infectious gastroenteritis and colitis, unspecified; K50.90 Crohn's disease, unspecified, without complications; F17.210 Nicotine dependence, cigarettes, uncomplicated; Z79.82 Long term (current) use of aspirin; Z79.52 Long term (current) use of systemic steroids; Z79.899 Other long term (current) drug therapy
CPT/HCPCS: 36415; 71045; 74177; 80053; 81001; 83605; 83690; 85025; 87040; 87086; 87177; 87209; 87493; 87506; 99282; 99406; J7030; Q9967; J0744; J2405